=== PATIENT | male | born 1985 | race Caucasian/White ===

== ENCOUNTER 2025-04-28 15:01 | Emergency (ER) | payer SELFPAY ==
[~2025-04-28] VITALS: Ht 167.6 cm; Wt 80.0 kg
[2025-04-28 15:51] VITALS: O2SAT 98
[2025-04-28] MEDS: KETOROLAC 30MG/ML VIAL IM ONE (19:08)
[2025-04-28 19:30] LABS: CLARITY URINE CLEAR (CLEAR); COLOR URINE YELLOW (YELLOW); GLUCOSE URINE NEGATIVE (NEGATIVE); KETONES URINE NEGATIVE (NEGATIVE); LEUKOCYTE ESTERASE URINE NEGATIVE (NEGATIVE); NITRITE URINE NEGATIVE (NEGATIVE); OCCULT BLOOD URINE NEGATIVE (NEGATIVE); PH URINE 7.5 (4.5-8.0); PROTEIN URINE NEGATIVE (NEGATIVE); SPECIFIC GRAVITY URINE 1.006 (1.005-1.030); UROBILINOGEN URINE 0.2 E.U./dL (0.2-1.0)
[2025-04-28] MEDS ORDERED: IBUP-2028 MT (19:49)
[2025-04-28] MEDS ORDERED: METH-653 MT (19:49)
[2025-04-28 20:03] VITALS: BP 132/95; PULSE 63; RESP 16; TEMP 36.7; O2SAT 100
[2025-04-28] MEDS: METHOCARBAMOL 750MG TABLET PO SCH (20:05)
== END 2025-04-28 20:06 | disposition home or self-care (01) ==
LOC: ER 15:01
DX: S16.1XXA Strain of muscle, fascia and tendon at neck level, initial encounter (principal); M62.830 Muscle spasm of back; M62.838 Other muscle spasm; X58.XXXA Exposure to other specified factors, initial encounter; Y93.89 Activity, other specified; Y92.89 Other specified places as the place of occurrence of the external cause; Y99.8 Other external cause status
CPT/HCPCS: 81003; 72040; 72100; 96372; 99284; J1885; Z7610